=== PATIENT | male | born 1945 | race Hispanic/Latino ===

== ENCOUNTER 2017-09-26 23:14 | Inpatient (IN) | payer MEDICARE ==
[~2017-09-26] VITALS: Ht 170.2 cm; Wt 64.8 kg
[2017-09-27 00:03] LABS: BASOPHILS % (AUTO) 0.3 % (0.0-5.0); EOSINOPHILS % (AUTO) 0.3 % (0.0-8.0); HEMATOCRIT 37.8 % (42-54); LYMPHOCYTES % (AUTO) 3.5 % (21.0-51.0); MEAN CORPUSCULAR HEMOGLOBIN 29.4 pg (27.0-33.0); MEAN CORPUSCULAR HGB CONC 33.6 g/dL (32.0-36.0); MEAN CORPUSCULAR VOLUME 87.5 fL (79-99); MONOCYTES % (AUTO) 2.9 % (3.0-13.0); PLATELET COUNT (AUTO) 132 K/uL (130-400); RED BLOOD CELL COUNT(AUTO) 4.32 MIL/uL (4.50-6.20); RED CELL DISTRIBUTION WIDTH 15.4 % (11.0-15.5); WHITE BLOOD COUNT (AUTO) 11.8 K/uL (4.8-10.8)
[2017-09-27] MEDS ORDERED: ACETAMINOPHEN EXTRA STRENGTH 500 MG TABLET ONE (00:08)
[2017-09-27] MEDS ORDERED: LEVOFLOXACIN 500 MG/D5W 100 ML 100 ML ONE (00:36)
[2017-09-27] MEDS ORDERED: CEFTRIAXONE SODIUM 1 GM ONE ×2 (00:37→08:44)
[2017-09-27] MEDS ORDERED: IPRATROPIUM/ALBUTEROL SULFATE 3 ML SOLUTION IH ONE ×3 (00:43→10:36)
[2017-09-27 00:46] LABS: ALANINE AMINOTRANSFERASE 33 U/L (12-78); ALBUMIN 2.2 g/dL (3.5-5.0); ASPARTATE AMINOTRANSFERASE 58 U/L (10-37); BILIRUBIN,TOTAL 0.7 mg/dL (0.2-1.0); CARBON DIOXIDE 19 mmol/L (21-32); CHLORIDE 93 mmol/L (101-111); CREATINE KINASE MB < 0.5 ng/mL (0.5-3.6); CREATINE KINASE, TOTAL 235 U/L (21-232); CREATININE 1.9 mg/dL (0.5-1.5); GLOMERULAR FILTR. RATE CALC 37 mL/min (>60); GLUCOSE,RANDOM 398 mg/dL (70-105); SODIUM SERUM 128 mmol/L (136-145); TOTAL PROTEIN, SERUM 7.5 g/dL (6.0-8.3); UREA NITROGEN, BLOOD 32 mg/dL (7-18)
[2017-09-27 00:57] LABS: POTASSIUM 2.9 mmol/L (3.5-5.1)
[2017-09-27] MEDS ORDERED: ACETAMINOPHEN 325 MG TAB PO PRN ×2 (01:15→02:45)
[2017-09-27] MEDS ORDERED: POTASSIUM CHLORIDE 10% ELIXIR 20 MEQ/15 ML UDCUP PO PRN (02:45)
[2017-09-27] MEDS ORDERED: HYDRALAZINE HCL 20 MG/ML VIAL IV PRN (02:45)
[2017-09-27] MEDS ORDERED: MORPHINE SULFATE 2 MG/ML 1ML SYG IV PRN (02:45)
[2017-09-27] MEDS ORDERED: ONDANSETRON HCL 4 MG/2 ML VIAL IV PRN (02:45)
[2017-09-27] MEDS ORDERED: LEVOFLOXACIN 500 MG/D5W 100 ML 100 ML IV SCH (02:45)
[2017-09-27] MEDS ORDERED: GUAIFENESIN-DM 200/20 MG 10 ML PO PRN (02:45)
[2017-09-27] MEDS ORDERED: SODIUM CHLORIDE 0.9% 1000ML 1,000 ML IV SCH (02:45)
[2017-09-27 04:43] LABS: BASOPHILS % (AUTO) 0.4 % (0.0-5.0); HEMATOCRIT 31.9 % (42-54); LYMPHOCYTES % (AUTO) 6.1 % (21.0-51.0); MEAN CORPUSCULAR HEMOGLOBIN 29.3 pg (27.0-33.0); MEAN CORPUSCULAR HGB CONC 33.4 g/dL (32.0-36.0); MEAN CORPUSCULAR VOLUME 87.6 fL (79-99); NEUTROPHILS % (AUTO) 86.5 % (40.0-77.0); PLATELET COUNT (AUTO) 117 K/uL (130-400); RED BLOOD CELL COUNT(AUTO) 3.64 MIL/uL (4.50-6.20); WHITE BLOOD COUNT (AUTO) 13.8 K/uL (4.8-10.8)
[2017-09-27 04:57] LABS: CREATININE 1.7 mg/dL (0.5-1.5); MAGNESIUM 1.2 mg/dL (1.80-2.40)
[2017-09-27] MEDS ORDERED: LIDOCAINE HCL-MPF 1% 2ML VIAL ONE (05:01)
[2017-09-27] MEDS ORDERED: POTASSIUM CHLORIDE 20MEQ/100ML 100 ML IV ONE ×2 (05:01→06:08)
[2017-09-27] MEDS ORDERED: IPRATROPIUM/ALBUTEROL SULFATE 3 ML SOLUTION IH SCH (06:00)
[2017-09-27] MEDS: IPRATROPIUM/ALBUTEROL SULFATE 3 ML SOLUTION IH SCH ×5 (06:54→21:51)
[2017-09-27] MEDS ORDERED: SODIUM CHLORIDE 0.9% 100 ML IV ONE (08:44)
[2017-09-27] MEDS: ENOXAPARIN SODIUM 40 MG/0.4 ML SYRINGE SQ SCH (09:00)
[2017-09-27] MEDS ORDERED: CEFTRIAXONE 1GM/D5W 50ML 50 ML IV SCH (09:00)
[2017-09-27] MEDS: FAMOTIDINE/PF 20 MG/2 ML VIAL IV SCH ×2 (09:00→21:29)
[2017-09-27] MEDS ORDERED: CARV12.511 PO (09:04)
[2017-09-27] MEDS ORDERED: LISI-613 PO (09:04)
[2017-09-27] MEDS ORDERED: METF-527 PO (09:04)
[2017-09-27] MEDS ORDERED: ATOR40TA71 PO (09:04)
[2017-09-27] MEDS ORDERED: INSU100I21 SQ ×2 (09:04)
[2017-09-27 09:05] VITALS: BP 148/76
[2017-09-27] MEDS ORDERED: ENOXAPARIN SODIUM 40 MG/0.4 ML SYRINGE SQ ONE (10:36)
[2017-09-27] MEDS: SODIUM CHLORIDE 0.9% 1000ML 1,000 ML IV SCH ×3 (11:15→23:41)
[2017-09-27 11:49] VITALS: BP 191/81
[2017-09-27] MEDS: MAGNESIUM 2GM PREMIX 50ML 50 ML IV SCH (11:58)
[2017-09-27] MEDS: ACETAMINOPHEN 325 MG TAB PO PRN ×2 (11:59→23:53)
[2017-09-27] MEDS ORDERED: CEFTRIAXONE SODIUM 1 GM IVP SCH (12:00)
[2017-09-27] MEDS ORDERED: LACTULOSE 20 GM/30 ML UDCUP PO PRN (13:30)
[2017-09-27 16:13] VITALS: BP 127/58
[2017-09-27] MEDS: ATORVASTATIN CALCIUM 40 MG TABLET PO SCH (16:56)
[2017-09-27] MEDS: INSULIN HUMULIN R 100 UNIT/ML 3ML SQ SCH ×2 (16:57→21:37)
[2017-09-27 20:12] VITALS: BP 141/54
[2017-09-27] MEDS: CARVEDILOL 12.5 MG TABLET PO SCH (21:29)
[2017-09-27] MEDS: DOCUSATE SODIUM 100 MG CAP PO SCH (21:29)
[2017-09-27] MEDS: INSULIN GLARGINE 100 UNITS/ML 10 ML VIAL SQ SCH (21:36)
[2017-09-27] MEDS: LEVOFLOXACIN 500 MG/D5W 100 ML 100 ML IV SCH (23:39)
[2017-09-28] VITALS (7 sets, daily range): BP systolic 122–181; BP diastolic 64–92
[2017-09-28] MEDS: IPRATROPIUM/ALBUTEROL SULFATE 3 ML SOLUTION IH SCH ×6 (03:07→21:50)
[2017-09-28 05:28] LABS: HEMATOCRIT 31.5 % (42-54); MEAN CORPUSCULAR HGB CONC 34.5 g/dL (32.0-36.0); PLATELET COUNT (AUTO) 119 K/uL (130-400); RED BLOOD CELL COUNT(AUTO) 3.62 MIL/uL (4.50-6.20); RED CELL DISTRIBUTION WIDTH 15.6 % (11.0-15.5); WHITE BLOOD COUNT (AUTO) 9.7 K/uL (4.8-10.8)
[2017-09-28 05:37] LABS: CREATININE 1.3 mg/dL (0.5-1.5); MAGNESIUM 1.5 mg/dL (1.80-2.40)
[2017-09-28] MEDS: INSULIN HUMULIN R 100 UNIT/ML 3ML SQ SCH ×4 (06:29→21:30)
[2017-09-28] MEDS: POTASSIUM CHLORIDE 20MEQ/100ML 100 ML IV PRN (06:59)
[2017-09-28] MEDS: LIDOCAINE HCL-MPF 1% 2ML VIAL IVP PRN (06:59)
[2017-09-28] MEDS: POTASSIUM CHLORIDE 20 MEQ ERTAB PO PRN ×6 (07:00→21:04)
[2017-09-28] MEDS: INSULIN GLARGINE 100 UNITS/ML 10 ML VIAL SQ SCH ×2 (07:05→21:29)
[2017-09-28] MEDS: DOCUSATE SODIUM 100 MG CAP PO SCH ×2 (09:00→09:20)
[2017-09-28] MEDS: LISINOPRIL 20 MG TABLET PO SCH (09:20)
[2017-09-28] MEDS: FAMOTIDINE/PF 20 MG/2 ML VIAL IV SCH ×2 (09:20→21:05)
[2017-09-28] MEDS: CARVEDILOL 12.5 MG TABLET PO SCH ×2 (09:21→21:04)
[2017-09-28] MEDS: ENOXAPARIN SODIUM 40 MG/0.4 ML SYRINGE SQ SCH (09:22)
[2017-09-28] MEDS ORDERED: MAGNESIUM 2GM PREMIX 50ML 50 ML IV SCH (09:30)
[2017-09-28] MEDS: MAGNESIUM 2GM PREMIX 50ML 50 ML IV SCH (12:46)
[2017-09-28] MEDS: ATORVASTATIN CALCIUM 40 MG TABLET PO SCH (16:28)
[2017-09-28] MEDS: SODIUM CHLORIDE 0.9% 1000ML 1,000 ML IV SCH ×2 (18:37→18:38)
[2017-09-29] VITALS (7 sets, daily range): BP systolic 119–170; BP diastolic 69–89
[2017-09-29] MEDS: LEVOFLOXACIN 500 MG/D5W 100 ML 100 ML IV SCH
[2017-09-29] MEDS: IPRATROPIUM/ALBUTEROL SULFATE 3 ML SOLUTION IH SCH ×6 (01:15→21:58)
[2017-09-29] MEDS: SODIUM CHLORIDE 0.9% 1000ML 1,000 ML IV SCH ×3 (03:42→22:53)
[2017-09-29 04:52] LABS: HEMATOCRIT 35.7 % (42-54); MEAN CORPUSCULAR HEMOGLOBIN 29.8 pg (27.0-33.0); MEAN CORPUSCULAR HGB CONC 34.4 g/dL (32.0-36.0); MEAN CORPUSCULAR VOLUME 86.7 fL (79-99); PLATELET COUNT (AUTO) 164 K/uL (130-400); RED BLOOD CELL COUNT(AUTO) 4.12 MIL/uL (4.50-6.20); WHITE BLOOD COUNT (AUTO) 11.2 K/uL (4.8-10.8)
[2017-09-29 04:59] LABS: CREATININE 1.1 mg/dL (0.5-1.5); MAGNESIUM 1.7 mg/dL (1.80-2.40); POTASSIUM 3.1 mmol/L (3.5-5.1)
[2017-09-29] MEDS ORDERED: DEXTROSE 50%-WATER 50 ML DISP.SYRIN IV ONE (05:02)
[2017-09-29] MEDS: INSULIN HUMULIN R 100 UNIT/ML 3ML SQ SCH ×4 (06:47→20:22)
[2017-09-29] MEDS: MAGNESIUM 2GM PREMIX 50ML 50 ML IV SCH (06:48)
[2017-09-29] MEDS: INSULIN GLARGINE 100 UNITS/ML 10 ML VIAL SQ SCH ×2 (07:30→21:00)
[2017-09-29] MEDS: FAMOTIDINE/PF 20 MG/2 ML VIAL IV SCH ×2 (08:47→21:03)
[2017-09-29] MEDS: DOCUSATE SODIUM 100 MG CAP PO SCH ×3 (08:47→21:00)
[2017-09-29] MEDS: LISINOPRIL 20 MG TABLET PO SCH (08:47)
[2017-09-29] MEDS: CARVEDILOL 12.5 MG TABLET PO SCH ×2 (08:49→21:03)
[2017-09-29] MEDS: ENOXAPARIN SODIUM 40 MG/0.4 ML SYRINGE SQ SCH (08:49)
[2017-09-29] MEDS: POTASSIUM CHLORIDE 20MEQ/100ML 100 ML IV PRN ×2 (10:15→13:44)
[2017-09-29] MEDS: LIDOCAINE HCL-MPF 1% 2ML VIAL IVP PRN ×2 (10:16→13:44)
[2017-09-29] MEDS: ATORVASTATIN CALCIUM 40 MG TABLET PO SCH (17:35)
[2017-09-30] MEDS: LEVOFLOXACIN 500 MG/D5W 100 ML 100 ML IV SCH (00:06)
[2017-09-30] MEDS: IPRATROPIUM/ALBUTEROL SULFATE 3 ML SOLUTION IH SCH ×3 (02:18→10:02)
[2017-09-30 04:25] VITALS: BP 169/88
[2017-09-30] MEDS: SODIUM CHLORIDE 0.9% 1000ML 1,000 ML IV SCH (04:25)
[2017-09-30] MEDS: INSULIN HUMULIN R 100 UNIT/ML 3ML SQ SCH ×2 (07:30→11:30)
[2017-09-30 08:06] VITALS: BP 184/88
[2017-09-30] MEDS: DOCUSATE SODIUM 100 MG CAP PO SCH (09:00)
[2017-09-30 09:04] LABS: POTASSIUM 4.1 mmol/L (3.5-5.1)
[2017-09-30] MEDS: INSULIN GLARGINE 100 UNITS/ML 10 ML VIAL SQ SCH (09:10)
[2017-09-30] MEDS: CARVEDILOL 12.5 MG TABLET PO SCH (09:35)
[2017-09-30] MEDS: FAMOTIDINE/PF 20 MG/2 ML VIAL IV SCH (09:35)
[2017-09-30] MEDS: LISINOPRIL 20 MG TABLET PO SCH (09:36)
[2017-09-30] MEDS: ENOXAPARIN SODIUM 40 MG/0.4 ML SYRINGE SQ SCH (09:37)
[2017-09-30] MEDS ORDERED: INSU100I21 SQ (11:17)
[2017-09-30] MEDS ORDERED: LEVO500T2 PO (11:17)
[2017-09-30 12:09] VITALS: BP 135/75
== END 2017-09-30 12:48 | disposition home or self-care (01) | DRG 871 ==
LOC: EDH 23:14 → EDHIP 09-27 00:49 → 4AH 09-27 09:16 → 3DH 09-28 18:27
PROVIDERS: ADMIT Family Medicine; ATTEND Family Medicine
DX: A41.9 Sepsis, unspecified organism (principal); E43 Unspecified severe protein-calorie malnutrition; N17.0 Acute kidney failure with tubular necrosis; M32.9 Systemic lupus erythematosus, unspecified; E11.649 Type 2 diabetes mellitus with hypoglycemia without coma; E87.2 Acidosis; N39.0 Urinary tract infection, site not specified; E83.42 Hypomagnesemia; E87.1 Hypo-osmolality and hyponatremia; N17.9 Acute kidney failure, unspecified; E87.6 Hypokalemia; I25.10 Atherosclerotic heart disease of native coronary artery without angina pectoris; E78.5 Hyperlipidemia, unspecified; M19.90 Unspecified osteoarthritis, unspecified site; I10 Essential (primary) hypertension; B96.20 Unspecified Escherichia coli [E. coli] as the cause of diseases classified elsewhere; B96.89 Other specified bacterial agents as the cause of diseases classified elsewhere; E86.0 Dehydration; F17.200 Nicotine dependence, unspecified, uncomplicated; Z68.22 Body mass index [BMI] 22.0-22.9, adult; Z95.1 Presence of aortocoronary bypass graft; Z88.8 Allergy status to other drugs, medicaments and biological substances; Z98.49 Cataract extraction status, unspecified eye
CPT/HCPCS: 36415; 71045; 80048; 80053; 82550; 82553; 82948; 83605; 83735; 84132; 84484; 85025; 85027; 87040; 87088; 87186; 87633; 87804; 93005; 94640; 94664; 99291; J0360; J0696; J1650; J1815; J1956; J3475; J3480; J3490; J7030; J7070